=== PATIENT | male | born 2000 | race African-American/Black ===

== ENCOUNTER 2021-05-22 02:19 | Inpatient (IN) | payer OTHER ==
[~2021-05-22] VITALS: Ht 175.3 cm; Wt 72.6 kg
[2021-05-22] MEDS ORDERED: IPRATROPIUM BROMIDE (0.02%) 0.5MG/2.5ML NEB HHN STA ×2 (02:40→03:39)
[2021-05-22] MEDS ORDERED: ALBUTEROL (0.083%) 2.5MG/3ML NEB HHN STA ×2 (02:40→03:39)
[2021-05-22] MEDS ORDERED: METHYLPREDNISOLONE SOD SUCC 125 MG/2 ML VIAL IV STA (02:40)
[2021-05-22] MEDS ORDERED: MAGNESIUM 2 G PREMIX 50 ML IV ONE (02:45)
[2021-05-22] MEDS ORDERED: SODIUM CHLORIDE 0.9% 1,000 ML IV ONE (02:45)
[2021-05-22 03:11] LABS: HEMATOCRIT. 46.5 % (42.0-52.0); HEMOGLOBIN. 16.2 g/dL (14.0-18.0); MEAN CORPUSCULAR HEMOGLOBIN 30.1 pg (28.0-32.0); MEAN CORPUSCULAR VOLUME 86.2 fL (80.0-94.0); PLATELET 251 x1000/uL (130-400); RED BLOOD CELL COUNT 5.39 mill/uL (4.7-6.1)
[2021-05-22 03:19] LABS: CHLORIDE 104 mEq/L (98-107)
[2021-05-22 03:26] LABS: ETHANOL BLOOD < 10 mg/dL
[2021-05-22] MEDS ORDERED: CEFTRIAXONE 1 G PREMIX 50 ML IV SCH (03:45)
[2021-05-22] MEDS ORDERED: AZITHROMYCIN 500 MG in DEXT 5% WATER 250 ML IV SCH (04:00)
[2021-05-22] MEDS ORDERED: KETOROLAC 15MG/ML VIAL IV SCH (04:45)
[2021-05-22 04:54] LABS: ATYPICAL LYMPHOCYTES 1
[2021-05-22 04:55] LABS: PLATELET ESTIMATE NORMAL
[2021-05-22 05:03] LABS: *AMPHETAMINES SCREEN URINE NEGATIVE (NEGATIVE); *BARBITURATES SCREEN URINE NEGATIVE (NEGATIVE); *BENZODIAZEPINES SCREEN URINE NEGATIVE (NEGATIVE); *COCAINE SCREEN URINE NEGATIVE (NEGATIVE)
[2021-05-22 05:04] LABS: CANNABINOID URINE SCREEN PRESUMTIVE POSITIVE (NEGATIVE); METHADONE URINE SCREEN NEGATIVE (NEGATIVE); OPIATES URINE SCREEN NEGATIVE (NEGATIVE); PHENCYCLIDINE URINE SCREEN NEGATIVE (NEGATIVE)
[2021-05-22] MEDS ORDERED: IPRATROPIUM/ALBUTEROL 0.5-3(2.5)MG/3ML NEB NEB PRN (07:45)
[2021-05-22] MEDS ORDERED: DOCUSATE SODIUM 100MG CAPSULE PO PRN (07:45)
[2021-05-22] MEDS ORDERED: GUAIFENESIN 200MG/10ML SUGAR FREE UDC PO PRN (07:45)
[2021-05-22] MEDS ORDERED: CLONIDINE 0.1MG TABLET PO PRN (07:45)
[2021-05-22] MEDS ORDERED: ACETAMINOPHEN 325MG TABLET PO PRN (07:45)
[2021-05-22] MEDS ORDERED: ONDANSETRON HCL 4MG/2ML INJ IV PRN (07:45)
[2021-05-22] MEDS ORDERED: HYDROCODONE/ACETAMINOPHEN 5/325MG TABLET PO PRN (07:45)
[2021-05-22] MEDS ORDERED: MAGNESIUM/ALUMINUM HYDROXIDE/SIMETHICONE 30ML UDC PO PRN (07:45)
[2021-05-22] MEDS ORDERED: LEVOFLOXACIN 500MG PREMIX 100 ML IV SCH (08:00)
[2021-05-22] MEDS ORDERED: NALOXONE HCL 0.4MG/ML VIAL IV PRN (08:00)
[2021-05-22] MEDS: METHYLPREDNISOLONE SOD SUCC 125 MG/2 ML VIAL IV SCH ×3 (09:10→20:33)
[2021-05-22] MEDS: IPRATROPIUM/ALBUTEROL 0.5-3(2.5)MG/3ML NEB NEB SCH ×3 (10:03→21:15)
[2021-05-22 12:00] VITALS: BP 134/79
[2021-05-22] MEDS ORDERED: ALBU90AE IH (12:16)
[2021-05-22] MEDS ORDERED: *PATIENT'S OWN MEDICATION STORAGE XX SCH (12:45)
[2021-05-22 16:00] VITALS: BP 126/65
[2021-05-22 20:00] VITALS: BP 132/78
[2021-05-23] VITALS: BP 111/58
[2021-05-23] MEDS: IPRATROPIUM/ALBUTEROL 0.5-3(2.5)MG/3ML NEB NEB SCH ×2 (01:15→09:24)
[2021-05-23] MEDS: METHYLPREDNISOLONE SOD SUCC 125 MG/2 ML VIAL IV SCH ×2 (02:53→09:24)
[2021-05-23 04:00] VITALS: BP 106/62
[2021-05-23 05:42] LABS: HEMATOCRIT. 43.2 % (42.0-52.0); HEMOGLOBIN. 15.1 g/dL (14.0-18.0); MEAN CORPUSCULAR HEMOGLOBIN 30.5 pg (28.0-32.0); MEAN CORPUSCULAR VOLUME 87.5 fL (80.0-94.0); MEAN PLATELET VOLUME 7.1 fl (7.4-10.4); PLATELET 274 x1000/uL (130-400); RED BLOOD CELL COUNT 4.94 mill/uL (4.7-6.1); RED CELL DISTRIBUTION WIDTH 13.4 % (11.6-14.6)
[2021-05-23 05:52] LABS: CHLORIDE 105 mEq/L (98-107)
[2021-05-23 08:00] VITALS: BP 130/68
[2021-05-23] MEDS ORDERED: LEVOFLOXACIN 500MG PREMIX 100 ML IV SCH (08:00)
[2021-05-23 11:56] VITALS: BP 133/69
[2021-05-23 12:00] VITALS: BP 133/69
[2021-05-23 16:06] LABS: PLATELET ESTIMATE NORMAL
== END 2021-05-23 12:21 | disposition home or self-care (01) | DRG 203 ==
LOC: ER 02:19 → 8WST 04:58 → ENRESERV 10:55
PROVIDERS: ADMIT Hospitalist; ATTEND Hospitalist
DX: J45.901 Unspecified asthma with (acute) exacerbation (principal); Z20.822 Contact with and (suspected) exposure to COVID-19; Z79.899 Other long term (current) drug therapy
CPT/HCPCS: 36415; 71045; 80053; 80305; 80320; 83605; 83880; 85025; 85379; 87426; 93005; 94640; 94644; 99291; J0456; J0696; J1885; J1956; J2930; J3475; J7030; J7040; J7060; G0480